=== PATIENT | male | born 1970 | race African-American/Black ===

== ENCOUNTER 2016-08-14 16:49 | Inpatient (IN) | payer OTHER ==
[~2016-08-14] VITALS: Ht 177.8 cm; Wt 159.8 kg
[~2016-08-14 16:49] MED LIST: ADVAIR HFA120 INHAL1 IH; ALEVE220 MG PO; ALPRAZOLAM0.5 MG PO; AMLODIPINE BESY10 MG PO; ATIVAN0.5 MG PO; ATIVAN2 MG PO; ATORVASTATIN CA20 MG PO; CARDIZEM60 MG PO; CIPRO500 MG PO; CLARITIN,ALAVAR10 MG PO; CLONAZEPAM0.5 MG PO; DICLOFENAC SODI75 MG PO; DILTIAZEM HCL60 MG PO; DOXEPIN HCL50 MG PO; DULERA 200 MCG/13 GM IH; DUONEB 2.5-0.5 M3 ML AEROSOL; ENOXAPARIN60 MG/0.6 SQ; Ecotrin PO; FLEXERIL10 MG PO; HYDROCHLOROTHIA25 MG PO; HYDROCODON-ACE1 EAC7 PO; HYDROMORPHO1 MG/1 ML PO; K-DUR20 MEQ PO; LEVAQUIN750 MG PO; LEVOFLOXACIN500 MG PO; LEVOFLOXACIN750 MG PO; LOPRESSOR50 MG PO; METOPROLOL SUCC50 MG PO; METOPROLOL TAR100 MG PO; METOPROLOL TART50 MG PO; MONTELUKAST SOD10 MG PO; NORVASC10 MG PO; ONDANSETRON HCL8 MG PO; PANTOPRAZOLE SO40 MG PO; PERCOCET 10/1 TABLET PO; PERCOCET 5/31 TABLET PO; PREDNISONE10 M1 PO; PREDNISONE10 MG PO; PREDNISONE20 MG PO; PRINZIDE 20-251 EACH PO; PROAIR HFA8.5 GM IH; PROMETHAZINE V240 ML PO; PROMETHAZINE12.5 M1 PO; ROBITUSSIN NIG118 ML PO; SERTRALINE HCL100 MG PO; SERTRALINE HCL50 MG PO; SINGULAIR10 MG PO; SPIRIVA RESPIMAT4 GM IH; TESSALON PERLE100 MG PO; THEOCHRON200 MG PO; TOPROL XL100 MG PO; ZESTORETIC,P1 TABLE2 PO; ZOLOFT100 MG PO; ZOLOFT50 MG PO; ZYRTEC10 M3 PO
[2016-08-14 17:52] LABS: HEMATOCRIT 38.5 % (38.0-50.0); MCH 27.8 PG (29.0-34.0); MCHC 33.8 G/DL (30.0-36.0); MCV 82.4 FL (86-99); MEAN PLAT.VOLUME 10.2 uM^3 (9.0-12.4); PLATELET COUNT 193 K/uL (156-360); RBC DIS.WIDTH-CV 15.7 % (11.8-14.6); RBC DIS.WIDTH-SD 46.3 % (39-53); RED BLOOD COUNT 4.67 M/uL (4.00-5.50); WHITE BLOOD COUNT 13.6 K/uL (4.1-10.2)
[2016-08-14 17:54] LABS: EOSINOPHIL (%) 0.7 % (0-5); EOSINOPHIL COUNT 0.1 K/uL (0-0.3); IMMATURE GRANULOCYTE (%) 0.5 % (0.0-0.7); IMMATURE GRANULOCYTE COUNT 0.7 K/uL; LYMPHOCYTE COUNT 3.1 K/uL (1.0-2.8); MONOCYTE (%) 4.3 % (3-12); MONOCYTE COUNT 0.6 K/uL (0-0.8); NEUTROPHIL (%) 71.8 % (45-76); NEUTROPHIL COUNT 9.8 K/uL (1.8-6.4)
[2016-08-14 18:00] LABS: CHLORIDE 104 mEq/L (99-109); POTASSIUM 2.8 mEq/L (3.7-5.4); SODIUM 141 mEq/L (136-147)
[2016-08-14 18:03] LABS: GLUCOSE 128 mg/dL (70-99)
[2016-08-14 18:04] LABS: ANION GAP 14 MEQ/L (2-14)
[2016-08-14 18:05] LABS: TOTAL BILIRUBIN 0.4 mg/dL (0.0-1.0)
[2016-08-14 18:06] LABS: ALKALINE PHOSPHATASE 93 IU/L (3-129); GFR ESTIMATE (CALCULATED) > 59 mL/min/
[2016-08-14 18:07] LABS: UREA NITROGEN (BUN) 19 mg/dL (9-23)
[2016-08-14 18:12] LABS: TROP-I INTERPRETATION NEGATIVE; TROPONIN-I < 0.01 ng/mL (0.0-0.30)
[2016-08-14] MEDS ORDERED: MELOXICAM15 MG PO (19:33)
[2016-08-14] MEDS ORDERED: DESYREL100 MG PO (19:35)
[2016-08-14] MEDS ORDERED: VENLAFAXINE HC150 M1 PO (19:36)
[2016-08-14 19:39] LABS: D-DIMER ELISA 0.26 mg/L FEU (< 0.57)
[2016-08-14] MEDS ORDERED: ATIVAN1 MG PO (19:42)
[2016-08-15 01:08] VITALS: BP 134/86
[2016-08-15 05:04] VITALS: BP 132/74
[2016-08-15 06:28] LABS: HEMATOCRIT 38.5 % (38.0-50.0); MCH 28.8 PG (29.0-34.0); MCHC 34.5 G/DL (30.0-36.0); MCV 83.3 FL (86-99); MEAN PLAT.VOLUME 10.6 uM^3 (9.0-12.4); PLATELET COUNT 212 K/uL (156-360); RBC DIS.WIDTH-CV 15.6 % (11.8-14.6); RBC DIS.WIDTH-SD 47.2 % (39-53); RED BLOOD COUNT 4.62 M/uL (4.00-5.50); WHITE BLOOD COUNT 16.2 K/uL (4.1-10.2)
[2016-08-15 06:52] LABS: ANION GAP 11 MEQ/L (2-14); CHLORIDE 102 MEQ/L (99-109); GFR ESTIMATE (CALCULATED) > 59 mL/min/; GLUCOSE 171 mg/dL (70-99); SAMPLE HEMOLYSIS CHECK 0; SAMPLE ICTERIC CHECK 0; SAMPLE LIPEMIA CHECK 0; SODIUM 140 MEQ/L (136-147); UREA NITROGEN (BUN) 17 mg/dL (9-23)
[2016-08-15 06:53] LABS: POTASSIUM 4.3 MEQ/L (3.7-5.4)
[2016-08-15 16:35] VITALS: BP 138/86
[2016-08-15 21:22] VITALS: BP 135/79
[2016-08-15 21:25] VITALS: BP 133/82
[2016-08-16] VITALS (7 sets, daily range): BP systolic 123–147; BP diastolic 74–96
[2016-08-17 08:25] VITALS: BP 148/100
[2016-08-17 15:05] VITALS: BP 133/81
[2016-08-18] VITALS: BP 135/79
[2016-08-18 08:00] VITALS: BP 159/95
[2016-08-18 16:01] VITALS: BP 135/98
[2016-08-19] VITALS: BP 134/88
[2016-08-19 02:08] LABS: TROP-I INTERPRETATION NEGATIVE; TROPONIN-I < 0.01 ng/mL (0.0-0.30)
[2016-08-19 07:33] LABS: TROP-I INTERPRETATION NEGATIVE; TROPONIN-I < 0.01 ng/mL (0.0-0.30)
[2016-08-19 07:55] VITALS: BP 144/79
[2016-08-19 08:30] LABS: HEMATOCRIT 40.1 % (38.0-50.0); MCH 27.6 PG (29.0-34.0); MCHC 32.7 G/DL (30.0-36.0); MCV 84.6 FL (86-99); MEAN PLAT.VOLUME 11.1 uM^3 (9.0-12.4); PLATELET COUNT 207 K/uL (156-360); RBC DIS.WIDTH-CV 16.7 % (11.8-14.6); RBC DIS.WIDTH-SD 50.8 % (39-53); RED BLOOD COUNT 4.74 M/uL (4.00-5.50); WHITE BLOOD COUNT 20.7 K/uL (4.1-10.2)
[2016-08-19 08:38] LABS: ANION GAP 8 MEQ/L (2-14); CHLORIDE 101 MEQ/L (99-109); SAMPLE HEMOLYSIS CHECK 0; SAMPLE ICTERIC CHECK 0; SAMPLE LIPEMIA CHECK 0; SODIUM 138 MEQ/L (136-147)
[2016-08-19 08:49] LABS: GFR ESTIMATE (CALCULATED) > 59 mL/min/; GLUCOSE 104 mg/dL (70-99); UREA NITROGEN (BUN) 20 mg/dL (9-23)
[2016-08-19 11:46] VITALS: BP 129/86
[2016-08-19 13:01] LABS: TROP-I INTERPRETATION NEGATIVE; TROPONIN-I < 0.01 ng/mL (0.0-0.30)
[2016-08-19 16:01] VITALS: BP 132/74
[2016-08-19 19:27] VITALS: BP 121/74
[2016-08-19 19:33] LABS: TROP-I INTERPRETATION NEGATIVE; TROPONIN-I < 0.01 ng/mL (0.0-0.30)
[2016-08-19 23:38] VITALS: BP 128/81
[2016-08-20 03:39] VITALS: BP 137/90
[2016-08-20 07:54] VITALS: BP 172/89
[2016-08-20 10:36] VITALS: BP 172/89
[2016-08-20] MEDS ORDERED: SPIRIVA RESPIMAT4 GM IH (12:31)
[2016-08-20] MEDS ORDERED: BENZONATATE100 MG PO (12:31)
[2016-08-20] MEDS ORDERED: BUSPAR10 MG PO (12:31)
[2016-08-20] MEDS ORDERED: ADVAIR HFA120 INHALA IH (12:32)
[2016-08-20] MEDS ORDERED: GUAIFENESIN WI120 M1 PO (12:32)
[2016-08-20] MEDS ORDERED: MUCINEX600 MG PO (12:32)
[2016-08-20] MEDS ORDERED: PREDNISONE10 MG PO (12:34)
[2016-08-20] MEDS ORDERED: ENDOCET 5-3251 EACH PO (12:36)
[2016-08-20] MEDS ORDERED: EFFEXOR XR75 MG PO (13:13)
== END 2016-08-20 13:55 | disposition home or self-care (01) | DRG 155 ==
LOC: EME 16:49 → EDOF 20:58 → 5WEST 20:58 → EDOF 20:58 → 5WEST 23:21 → 5SOUTH 08-16 10:26 → 5WEST 08-16 10:26 → 5SOUTH 08-16 21:53
PROVIDERS: Emergency Medicine; Hospitalist; Nurse Practitioner Adult Health
PROC: 5A09357 Assistance with Respiratory Ventilation, Less than 24 Consecutive Hours, Continuous Positive Airway Pressure (ICD-10-PCS; principal; 2016-08-15)
DX: J38.3 Other diseases of vocal cords (principal); J44.1 Chronic obstructive pulmonary disease with (acute) exacerbation; J44.0 Chronic obstructive pulmonary disease with (acute) lower respiratory infection; J20.9 Acute bronchitis, unspecified; Z68.43 Body mass index [BMI] 50.0-59.9, adult; E87.6 Hypokalemia; M62.08 Separation of muscle (nontraumatic), other site; J45.909 Unspecified asthma, uncomplicated; G47.33 Obstructive sleep apnea (adult) (pediatric); G40.909 Epilepsy, unspecified, not intractable, without status epilepticus; I10 Essential (primary) hypertension; E78.5 Hyperlipidemia, unspecified; F32.9 Major depressive disorder, single episode, unspecified; F41.9 Anxiety disorder, unspecified; E66.01 Morbid (severe) obesity due to excess calories; Z87.891 Personal history of nicotine dependence; Z91.041 Radiographic dye allergy status
CPT/HCPCS: 70360; 70490; 71010; 71020; 71250; 74150; 76536; 80048; 80053; 83880; 84484; 85025; 85027; 85379; 87651 90; 92610 GN; 93005; 94640; 94640 76; 94660; 94760; 99202; 99281; 99284; G0378; J0696; J1100; J1170; J1644; J2270; J2930; J7030; J7050; J7512

== ENCOUNTER 2016-10-09 19:00 | Emergency (ER) | payer OTHER ==
[~2016-10-09] VITALS: Ht 180.3 cm; Wt 167.1 kg
[~2016-10-09 19:00] MED LIST changes: +ADVAIR HFA120 INHALA IH; +ATIVAN1 MG PO; +BENZONATATE100 MG PO; +BUSPAR10 MG PO; +DESYREL100 MG PO; +EFFEXOR XR75 MG PO; +ENDOCET 5-3251 EACH PO; +GUAIFENESIN WI120 M1 PO; +MELOXICAM15 MG PO; +MUCINEX600 MG PO; +VENLAFAXINE HC150 M1 PO
[2016-10-09 19:48] LABS: HEMATOCRIT 39.3 % (38.0-50.0); MCH 28.4 PG (29.0-34.0); MCHC 31.8 G/DL (30.0-36.0); MCV 89.3 FL (86-99); PLATELET COUNT 206 K/uL (156-360); RBC DIS.WIDTH-SD 49.3 % (39-53); WHITE BLOOD COUNT 12.6 K/uL (4.1-10.2)
[2016-10-09 19:56] LABS: CHLORIDE 107 mEq/L (99-109); SODIUM 145 mEq/L (136-147)
[2016-10-09 19:58] LABS: GLUCOSE 86 mg/dL (70-99)
[2016-10-09 19:59] LABS: ANION GAP 10 MEQ/L (2-14)
[2016-10-09 20:00] LABS: ADD MIUA? NO; BILIRUBIN NEGATIVE; BLOOD NEGATIVE; COLOR STRAW ((YELLOW)); GLUCOSE (STRIP) NEGATIVE; KETONES NEGATIVE; LEUKOCYTES NEGATIVE; NITRITE NEGATIVE; PROTEIN (STRIP) NEGATIVE; SPECIFIC GRAVITY 1.005 (1.000-1.030); UCUL ADDED? NO; UROBILINOGEN 0.2 MG/DL (0.2-1.0)
[2016-10-09 20:02] LABS: GFR ESTIMATE (CALCULATED) > 59 mL/min/
[2016-10-09 20:03] LABS: UREA NITROGEN (BUN) 12 mg/dL (9-23)
[2016-10-09 21:30] LABS: TOTAL BILIRUBIN 0.6 mg/dL (0.0-1.0)
[2016-10-09 21:31] LABS: ALKALINE PHOSPHATASE 94 IU/L (3-129)
[2016-10-09 21:34] LABS: DIRECT BILIRUBIN 0.3 mg/dL (0.0-0.3)
[2016-10-09 21:35] LABS: LIPASE 99 U/L (1.0-51.0)
[2016-10-09] MEDS ORDERED: CIPRO500 MG PO (22:54)
[2016-10-09] MEDS ORDERED: FLAGYL500 MG PO (22:54)
[2016-10-09 23:25] VITALS: BP 142/85
== END 2016-10-09 23:26 | disposition home or self-care (01) ==
LOC: EME 19:00
DX: K57.92 Diverticulitis of intestine, part unspecified, without perforation or abscess without bleeding (principal); R79.89 Other specified abnormal findings of blood chemistry; D72.829 Elevated white blood cell count, unspecified; J45.909 Unspecified asthma, uncomplicated; G89.29 Other chronic pain; I10 Essential (primary) hypertension; R56.9 Unspecified convulsions; Z87.442 Personal history of urinary calculi; Z87.820 Personal history of traumatic brain injury; Z87.891 Personal history of nicotine dependence
CPT/HCPCS: 74176; 80048; 80076; 81003; 83690; 85027; 99281; 99285; J1885; J2405; J3010; J7030

== ENCOUNTER 2016-10-14 12:53 | Emergency (ER) | payer OTHER ==
[~2016-10-14] VITALS: Ht 180.3 cm; Wt 164.1 kg
[~2016-10-14 12:53] MED LIST changes: +FLAGYL500 MG PO
[2016-10-14 13:19] LABS: BASOPHIL COUNT 0.1 K/uL (0-0.1); EOSINOPHIL (%) 3.7 % (0-5); EOSINOPHIL COUNT 0.4 K/uL (0-0.3); HEMATOCRIT 44.5 % (38.0-50.0); IMMATURE GRANULOCYTE (%) 0.2 % (0.0-0.7); INSTRUMENT ABS NEUTROPHIL CT 7.2 K/uL; LYMPHOCYTE COUNT 2.7 K/uL (1.0-2.8); MCH 28.3 PG (29.0-34.0); MCHC 32.4 G/DL (30.0-36.0); MCV 87.6 FL (86-99); MEAN PLAT.VOLUME 10.1 uM^3 (9.0-12.4); MONOCYTE (%) 11.3 % (3-12); MONOCYTE COUNT 1.3 K/uL (0-0.8); NEUTROPHIL (%) 61.4 % (45-76); NEUTROPHIL COUNT 7.2 K/uL (1.8-6.4); PLATELET COUNT 253 K/uL (156-360); RBC DIS.WIDTH-CV 14.2 % (11.8-14.6); RBC DIS.WIDTH-SD 46.3 % (39-53); RED BLOOD COUNT 5.08 M/uL (4.00-5.50); WHITE BLOOD COUNT 11.8 K/uL (4.1-10.2)
[2016-10-14 13:28] LABS: CHLORIDE 103 mEq/L (99-109); POTASSIUM 3.7 mEq/L (3.7-5.4); SODIUM 141 mEq/L (136-147)
[2016-10-14 13:30] LABS: GLUCOSE 118 mg/dL (70-99)
[2016-10-14 13:31] LABS: ANION GAP 13 MEQ/L (2-14)
[2016-10-14 13:31] LABS: ADD MIUA? YES; BILIRUBIN NEGATIVE; BLOOD SMALL; COLOR AMBER ((YELLOW)); GLUCOSE (STRIP) NEGATIVE; KETONES NEGATIVE; LEUKOCYTES SMALL; NITRITE NEGATIVE; PROTEIN (STRIP) 30; SPECIFIC GRAVITY 1.028 (1.000-1.030)
[2016-10-14 13:32] LABS: TOTAL BILIRUBIN 0.5 mg/dL (0.0-1.0)
[2016-10-14 13:33] LABS: ALKALINE PHOSPHATASE 99 IU/L (3-129)
[2016-10-14 13:34] LABS: GFR ESTIMATE (CALCULATED) > 59 mL/min/
[2016-10-14 13:35] LABS: UREA NITROGEN (BUN) 16 mg/dL (9-23)
[2016-10-14 13:37] LABS: LIPASE 11 U/L (1.0-51.0)
[2016-10-14 13:40] LABS: BACTERIA NONE SEEN /HPF; EPITHELIAL CELLS RARE /HPF; MUCUS 3+ /LPF; RED BLOOD CELLS 15-20 /HPF (0-5); UCUL ADDED? NO; WHITE BLOOD CELLS 0-5 /HPF (0-5)
[2016-10-14] MEDS ORDERED: PROMETHAZINE HC25 M1 PO (17:34)
[2016-10-14] MEDS ORDERED: BENTYL20 MG PO (17:34)
[2016-10-14] MEDS ORDERED: PHENERGAN25 MG PR (17:34)
[2016-10-14 17:52] VITALS: BP 100/98
== END 2016-10-14 18:08 | disposition home or self-care (01) ==
LOC: EME 12:53
PROVIDERS: Physician Assistant
DX: R10.9 Unspecified abdominal pain (principal); K57.30 Diverticulosis of large intestine without perforation or abscess without bleeding; R30.0 Dysuria; R31.29 Other microscopic hematuria; Z87.442 Personal history of urinary calculi; I10 Essential (primary) hypertension; J44.9 Chronic obstructive pulmonary disease, unspecified; J45.909 Unspecified asthma, uncomplicated; Z87.891 Personal history of nicotine dependence
CPT/HCPCS: 74176; 80053; 81003; 83605; 83690; 85025; 85027; 87040; 87086; 99281; 99284; J1885; J2405; J3010; J7030

== ENCOUNTER 2016-11-07 09:28 | Emergency (ER) | payer OTHER ==
[~2016-11-07] VITALS: Ht 180.3 cm; Wt 166.0 kg
[~2016-11-07 09:28] MED LIST changes: +BENTYL20 MG PO; +PHENERGAN25 MG PR; +PROMETHAZINE HC25 M1 PO
[2016-11-07 10:32] LABS: BASOPHIL COUNT 0.1 K/uL (0-0.1); EOSINOPHIL (%) 3.8 % (0-5); EOSINOPHIL COUNT 0.3 K/uL (0-0.3); HEMATOCRIT 38.5 % (38.0-50.0); IMMATURE GRANULOCYTE (%) 0.3 % (0.0-0.7); INSTRUMENT ABS NEUTROPHIL CT 5.7 K/uL; MCH 28.3 PG (29.0-34.0); MCHC 32.5 G/DL (30.0-36.0); MCV 87.3 FL (86-99); MEAN PLAT.VOLUME 10.5 uM^3 (9.0-12.4); MONOCYTE (%) 8.5 % (3-12); MONOCYTE COUNT 0.8 K/uL (0-0.8); NEUTROPHIL COUNT 5.7 K/uL (1.8-6.4); PLATELET COUNT 181 K/uL (156-360); RBC DIS.WIDTH-CV 13.4 % (11.8-14.6); RBC DIS.WIDTH-SD 43.3 % (39-53); RED BLOOD COUNT 4.41 M/uL (4.00-5.50)
[2016-11-07 10:40] LABS: CHLORIDE 107 mEq/L (99-109); POTASSIUM 3.4 mEq/L (3.7-5.4); SODIUM 143 mEq/L (136-147)
[2016-11-07 10:42] LABS: GLUCOSE 100 mg/dL (70-99)
[2016-11-07 10:43] LABS: ANION GAP 12 MEQ/L (2-14)
[2016-11-07 10:44] LABS: D-DIMER ELISA 0.35 mg/L FEU (< 0.57); PROTHROMBIN TIME 9.8 (9.2-11.2); PTT 27.2 (25-32)
[2016-11-07 10:46] LABS: GFR ESTIMATE (CALCULATED) > 59 mL/min/; UREA NITROGEN (BUN) 15 mg/dL (9-23)
[2016-11-07 10:52] LABS: TROP-I INTERPRETATION NEGATIVE; TROPONIN-I < 0.01 ng/mL (0.0-0.30)
[2016-11-07 12:24] LABS: TROP-I INTERPRETATION NEGATIVE; TROPONIN-I < 0.01 ng/mL (0.0-0.30)
[2016-11-07] MEDS ORDERED: ATARAX,VISTARIL50 MG PO (13:04)
[2016-11-07 14:00] VITALS: BP 118/81
== END 2016-11-07 14:06 | disposition home or self-care (01) ==
LOC: EME 09:28
PROVIDERS: Emergency Medicine
DX: R06.00 Dyspnea, unspecified (principal); I10 Essential (primary) hypertension; Z87.891 Personal history of nicotine dependence; Z91.041 Radiographic dye allergy status
CPT/HCPCS: 71010; 80048; 84484; 85025; 85379; 85610; 85730; 93005; 94640; 99202; 99281; 99285

== ENCOUNTER 2016-12-18 16:03 | Emergency (ER) | payer OTHER ==
[~2016-12-18] VITALS: Ht 180.3 cm; Wt 159.5 kg
[~2016-12-18 16:03] MED LIST changes: +ATARAX,VISTARIL50 MG PO
[2016-12-18 16:52] LABS: HEMATOCRIT 42.9 % (38.0-50.0); MCH 27.7 PG (29.0-34.0); MCHC 31.9 G/DL (30.0-36.0); MCV 86.8 FL (86-99); MEAN PLAT.VOLUME 10.1 uM^3 (9.0-12.4); PLATELET COUNT 197 K/uL (156-360); RBC DIS.WIDTH-CV 13.7 % (11.8-14.6); RED BLOOD COUNT 4.94 M/uL (4.00-5.50); WHITE BLOOD COUNT 11.7 K/uL (4.1-10.2)
[2016-12-18 16:59] LABS: CHLORIDE 106 mEq/L (99-109); POTASSIUM 4.2 mEq/L (3.7-5.4)
[2016-12-18 17:00] LABS: SODIUM 141 mEq/L (136-147)
[2016-12-18 17:01] LABS: GLUCOSE 105 mg/dL (70-99)
[2016-12-18 17:03] LABS: ANION GAP 10 MEQ/L (2-14)
[2016-12-18 17:05] LABS: GFR ESTIMATE (CALCULATED) > 59 mL/min/
[2016-12-18 17:06] LABS: UREA NITROGEN (BUN) 17 mg/dL (9-23)
[2016-12-18 17:13] LABS: TROP-I INTERPRETATION NEGATIVE; TROPONIN-I < 0.01 ng/mL (0.0-0.30)
[2016-12-18] MEDS ORDERED: PHENERGAN-CODE120 ML PO (17:42)
[2016-12-18] MEDS ORDERED: PROVENTIL HFA6.7 GM IH (17:42)
[2016-12-18] MEDS ORDERED: LEVAQUIN750 MG PO (17:42)
[2016-12-18 18:12] VITALS: BP 119/78
== END 2016-12-18 18:13 | disposition home or self-care (01) ==
LOC: EME 16:03
PROVIDERS: Emergency Medicine
DX: J20.9 Acute bronchitis, unspecified (principal); I10 Essential (primary) hypertension; R56.9 Unspecified convulsions; Z87.442 Personal history of urinary calculi; Z91.041 Radiographic dye allergy status; Z87.891 Personal history of nicotine dependence
CPT/HCPCS: 71020; 80048; 84484; 85027; 93005; 94640; 99281; 99285

== ENCOUNTER 2017-01-01 04:01 | Emergency (ER) | payer OTHER ==
[~2017-01-01] VITALS: Ht 180.3 cm; Wt 163.2 kg
[~2017-01-01 04:01] MED LIST changes: +PHENERGAN-CODE120 ML PO; +PROVENTIL HFA6.7 GM IH
[2017-01-01 05:06] LABS: HEMATOCRIT 38.6 % (38.0-50.0); MCH 27.8 PG (29.0-34.0); MCHC 32.4 G/DL (30.0-36.0); MCV 85.8 FL (86-99); MEAN PLAT.VOLUME 10.3 uM^3 (9.0-12.4); PLATELET COUNT 192 K/uL (156-360); RBC DIS.WIDTH-CV 13.7 % (11.8-14.6); RBC DIS.WIDTH-SD 42.9 % (39-53); WHITE BLOOD COUNT 8.5 K/uL (4.1-10.2)
[2017-01-01 05:35] LABS: CHLORIDE 105 mEq/L (99-109); POTASSIUM 3.7 mEq/L (3.7-5.4); SODIUM 138 mEq/L (136-147)
[2017-01-01 05:37] LABS: GLUCOSE 98 mg/dL (70-99)
[2017-01-01 05:38] LABS: ANION GAP 8 MEQ/L (2-14)
[2017-01-01 05:41] LABS: GFR ESTIMATE (CALCULATED) > 59 mL/min/
[2017-01-01 05:42] LABS: UREA NITROGEN (BUN) 17 mg/dL (9-23)
[2017-01-01 05:43] LABS: CREATINE KINASE 108 IU/L (1-294); TOTAL CK 108 IU/L (1-294)
[2017-01-01 05:50] LABS: CK-MB 0.9 ng/mL (0.0-4.9)
[2017-01-01 06:15] LABS: BACTERIA NONE SEEN /HPF; EPITHELIAL CELLS RARE /HPF; MUCUS TRACE /LPF; RED BLOOD CELLS 0-5 /HPF (0-5); UCUL ADDED? NO; WHITE BLOOD CELLS 0-5 /HPF (0-5)
[2017-01-01 06:28] LABS: INFLUENZA A VIRAL ANTIGEN NEGATIVE; INFLUENZA B VIRAL ANTIGEN NEGATIVE
[2017-01-01 06:30] VITALS: BP 137/81
[2017-01-01 06:30] LABS: AMPHETAMINE NEGATIVE (500 ng/mL); BARBITURATES NEGATIVE (200 ng/mL); BENZODIAZEPINES NEGATIVE (150 ng/mL); COCAINE NEGATIVE (150 ng/mL); METHADONE NEGATIVE (200 ng/mL); METHAMPHETAMINE NEGATIVE (500 ng/mL); OPIATES (MORPHINE) PRESUMPTIVE POSITIVE (100 ng/mL); OXYCODONE PRESUMPTIVE POSITIVE (100 ng/mL); PHENCYCLIDINE NEGATIVE (25 ng/mL); THC CANNABINOIDS NEGATIVE (50 ng/mL); TRICYCLIC ANTIDEPRESSANTS NEGATIVE (300 ng/mL)
[2017-01-01 06:31] LABS: ADD MEDTOX COMMENT Y; INTERNAL CONTROLS VALID? YES; PROPOXYPHENE NEGATIVE (300 ng/mL)
[2017-01-01 06:45] LABS: COLOR YELLOW ((YELLOW)); LEUKOCYTES NEGATIVE; NITRITE NEGATIVE; SPECIFIC GRAVITY 1.018 (1.000-1.030)
[2017-01-01 06:46] LABS: ADD MIUA? YES; BILIRUBIN NEGATIVE; BLOOD MODERATE; GLUCOSE (STRIP) NEGATIVE; KETONES NEGATIVE; PROTEIN (STRIP) NEGATIVE; UROBILINOGEN 0.2 MG/DL (0.2-1.0)
== END 2017-01-01 06:45 | disposition home or self-care (01) ==
LOC: EME 04:01
PROVIDERS: Emergency Medicine
DX: R20.2 Paresthesia of skin (principal); M25.522 Pain in left elbow; M25.521 Pain in right elbow; M25.562 Pain in left knee; M25.561 Pain in right knee; M79.672 Pain in left foot; M79.671 Pain in right foot; G89.29 Other chronic pain; J44.9 Chronic obstructive pulmonary disease, unspecified; I10 Essential (primary) hypertension; Z87.442 Personal history of urinary calculi; Z90.49 Acquired absence of other specified parts of digestive tract; Z87.891 Personal history of nicotine dependence
CPT/HCPCS: 80048; 81003; 82550; 82553; 83605; 84999; 85027; 87502; 99281; 99285; J1885; J2270; J2405; J7030

== ENCOUNTER 2017-01-15 13:43 | Emergency (ER) | payer OTHER ==
[~2017-01-15] VITALS: Ht 180.3 cm; Wt 159.1 kg
[2017-01-15 16:15] LABS: MCH 27.5 PG (29.0-34.0); MCHC 32.4 G/DL (30.0-36.0); MEAN PLAT.VOLUME 10.3 uM^3 (9.0-12.4); PLATELET COUNT 217 K/uL (156-360); RBC DIS.WIDTH-SD 43.5 % (39-53); RED BLOOD COUNT 4.94 M/uL (4.00-5.50); WHITE BLOOD COUNT 10.9 K/uL (4.1-10.2)
[2017-01-15 16:27] LABS: ADD MIUA? YES; BILIRUBIN NEGATIVE; BLOOD SMALL; COLOR COLORLESS ((YELLOW)); GLUCOSE (STRIP) NEGATIVE; KETONES NEGATIVE; LEUKOCYTES NEGATIVE; NITRITE NEGATIVE; PROTEIN (STRIP) NEGATIVE; SPECIFIC GRAVITY 1.006 (1.000-1.030); UROBILINOGEN 0.2 MG/DL (0.2-1.0)
[2017-01-15 16:30] LABS: BACTERIA NONE SEEN /HPF; EPITHELIAL CELLS RARE /HPF; MUCUS TRACE /LPF; RED BLOOD CELLS 0-5 /HPF (0-5); UCUL ADDED? NO; WHITE BLOOD CELLS 0-5 /HPF (0-5)
[2017-01-15 16:34] LABS: AMPHETAMINE NEGATIVE (500 ng/mL); BARBITURATES NEGATIVE (200 ng/mL); BENZODIAZEPINES PRESUMPTIVE POSITIVE (150 ng/mL); COCAINE NEGATIVE (150 ng/mL); INTERNAL CONTROLS VALID? YES; METHADONE NEGATIVE (200 ng/mL); METHAMPHETAMINE NEGATIVE (500 ng/mL); OPIATES (MORPHINE) NEGATIVE (100 ng/mL); OXYCODONE NEGATIVE (100 ng/mL); PHENCYCLIDINE NEGATIVE (25 ng/mL); PROPOXYPHENE NEGATIVE (300 ng/mL); THC CANNABINOIDS NEGATIVE (50 ng/mL); TRICYCLIC ANTIDEPRESSANTS NEGATIVE (300 ng/mL)
[2017-01-15 16:35] LABS: ADD MEDTOX COMMENT Y
[2017-01-15 16:40] LABS: CHLORIDE 109 mEq/L (99-109); POTASSIUM 3.5 mEq/L (3.7-5.4); SODIUM 144 mEq/L (136-147)
[2017-01-15 16:42] LABS: GLUCOSE 95 mg/dL (70-99)
[2017-01-15 16:43] LABS: ANION GAP 9 MEQ/L (2-14)
[2017-01-15 16:44] LABS: TOTAL BILIRUBIN 0.4 mg/dL (0.0-1.0)
[2017-01-15 16:45] LABS: SERUM ETHYL ALCOHOL < 10 mg/dL
[2017-01-15 16:46] LABS: ALKALINE PHOSPHATASE 119 IU/L (3-129); GFR ESTIMATE (CALCULATED) > 59 mL/min/
[2017-01-15 16:47] LABS: UREA NITROGEN (BUN) 14 mg/dL (9-23)
[2017-01-15 17:10] LABS: BENZODIAZEPINES QUANT VALUE 0 NG/ML; BENZODIAZEPINES, URINE SCREEN Negative (200 ng/mL)
[2017-01-15 22:49] VITALS: BP 157/85
== END 2017-01-15 23:08 ==
LOC: EME 13:43
PROVIDERS: Emergency Medicine
DX: F33.2 Major depressive disorder, recurrent severe without psychotic features (principal); R45.851 Suicidal ideations; I50.9 Heart failure, unspecified; J44.9 Chronic obstructive pulmonary disease, unspecified; I10 Essential (primary) hypertension; Z87.442 Personal history of urinary calculi; Z91.041 Radiographic dye allergy status; Z87.891 Personal history of nicotine dependence
CPT/HCPCS: 80053; 81003; 84999; 85027; 90837; 99281; 99285; G0480

== ENCOUNTER 2017-03-09 11:02 | Observation (INO) | payer OTHER ==
[~2017-03-09] VITALS: Ht 180.3 cm; Wt 160.0 kg
[2017-03-09 13:05] LABS: EOSINOPHIL (%) 6.3 % (0-5); EOSINOPHIL COUNT 0.6 K/uL (0-0.3); HEMATOCRIT 38.8 % (38.0-50.0); IMMATURE GRANULOCYTE (%) 0.2 % (0.0-0.7); LYMPHOCYTE COUNT 2.3 K/uL (1.0-2.8); MCH 27.4 PG (29.0-34.0); MCHC 32.2 G/DL (30.0-36.0); MCV 85.1 FL (86-99); MEAN PLAT.VOLUME 10.3 uM^3 (9.0-12.4); MONOCYTE (%) 9.6 % (3-12); MONOCYTE COUNT 0.8 K/uL (0-0.8); NEUTROPHIL (%) 57.7 % (45-76); PLATELET COUNT 230 K/uL (156-360); RBC DIS.WIDTH-CV 14.7 % (11.8-14.6); RBC DIS.WIDTH-SD 46.2 % (39-53); RED BLOOD COUNT 4.56 M/uL (4.00-5.50); WHITE BLOOD COUNT 8.7 K/uL (4.1-10.2)
[2017-03-09 13:15] LABS: CHLORIDE 107 mEq/L (99-109); POTASSIUM 3.9 mEq/L (3.7-5.4); SODIUM 141 mEq/L (136-147)
[2017-03-09 13:16] LABS: GLUCOSE 95 mg/dL (70-99)
[2017-03-09 13:18] LABS: ANION GAP 9 MEQ/L (2-14)
[2017-03-09 13:20] LABS: GFR ESTIMATE (CALCULATED) > 59 mL/min/
[2017-03-09 13:21] LABS: UREA NITROGEN (BUN) 17 mg/dL (9-23)
[2017-03-09] MEDS ORDERED: VENTOLIN HFA18 GM IH (17:04)
[2017-03-09] MEDS ORDERED: PERCOCET 7.51 TABLET PO (17:05)
[2017-03-09] MEDS ORDERED: RESTORIL15 MG PO (17:06)
[2017-03-09] MEDS ORDERED: LISINOPRIL2.5 MG PO (17:07)
[2017-03-09] MEDS ORDERED: FLONASE16 G1 BOTH NARES (17:07)
[2017-03-09] MEDS ORDERED: CYMBALTA30 MG PO (17:07)
[2017-03-09] MEDS ORDERED: SEROQUEL50 MG PO (17:07)
[2017-03-09] MEDS ORDERED: CYMBALTA60 MG PO (17:07)
[2017-03-09] MEDS ORDERED: GABAPENTIN100 MG PO (17:07)
[2017-03-09] MEDS ORDERED: FUROSEMIDE20 MG PO (17:07)
[2017-03-09] MEDS ORDERED: GABAPENTIN600 MG PO (17:07)
[2017-03-09 17:45] VITALS: BP 119/60
[2017-03-09 20:38] VITALS: BP 152/87
[2017-03-10 00:04] VITALS: BP 142/91
[2017-03-10 04:34] VITALS: BP 143/69
[2017-03-10 07:46] VITALS: BP 138/103
[2017-03-10 11:53] VITALS: BP 139/83
[2017-03-10 12:37] LABS: ADD MIUA? YES; BILIRUBIN NEGATIVE; BLOOD MODERATE; COLOR YELLOW ((YELLOW)); GLUCOSE (STRIP) 50; KETONES 5; LEUKOCYTES NEGATIVE; NITRITE NEGATIVE; PROTEIN (STRIP) NEGATIVE; SPECIFIC GRAVITY 1.027 (1.000-1.030); UROBILINOGEN 0.2 MG/DL (0.2-1.0)
[2017-03-10 13:21] LABS: BACTERIA NONE SEEN /HPF; EPITHELIAL CELLS RARE /HPF; MUCUS 3+ /LPF; RED BLOOD CELLS TNTC /HPF (0-5); UCUL ADDED? YES; WHITE BLOOD CELLS 0-5 /HPF (0-5)
[2017-03-10 15:14] VITALS: BP 135/87
[2017-03-10 20:30] VITALS: BP 130/56
[2017-03-11 01:06] VITALS: BP 142/80
[2017-03-11 03:00] VITALS: BP 127/67
[2017-03-11 08:42] VITALS: BP 157/70
[2017-03-11] MEDS ORDERED: BENZONATATE100 MG PO (13:55)
[2017-03-11] MEDS ORDERED: PHENAZOPYRIDIN100 MG PO (13:55)
[2017-03-11] MEDS ORDERED: TAMSULOSIN HCL0.4 MG PO (13:55)
[2017-03-11] MEDS ORDERED: PREDNISONE10 MG PO (13:55)
[2017-03-11] MEDS ORDERED: AZITHROMYCIN500 M1 PO (13:55)
== END 2017-03-11 15:21 | disposition home or self-care (01) ==
LOC: EME 11:02 → EDOF 16:02 → ENRESERV 16:08 → 5WEST 17:11
PROVIDERS: Hospitalist; Physician Assistant
DX: R06.1 Stridor (principal); J20.9 Acute bronchitis, unspecified; I10 Essential (primary) hypertension; R31.29 Other microscopic hematuria; E66.01 Morbid (severe) obesity due to excess calories; Z68.42 Body mass index [BMI] 45.0-49.9, adult; G47.33 Obstructive sleep apnea (adult) (pediatric); R39.14 Feeling of incomplete bladder emptying; Z87.891 Personal history of nicotine dependence; Z83.3 Family history of diabetes mellitus; Z82.49 Family history of ischemic heart disease and other diseases of the circulatory system; Z81.1 Family history of alcohol abuse and dependence
CPT/HCPCS: 70360; 71020; 74176; 80048; 81003; 83880; 85025; 87086; 94640; 94640 76; 94660; 99202; 99281; 99285; G0378; J1100; J1650; J1940; J2930; J3475

== ENCOUNTER 2017-04-11 17:19 | Emergency (ER) | payer OTHER ==
[~2017-04-11] VITALS: Ht 180.3 cm; Wt 161.4 kg
[~2017-04-11 17:19] MED LIST changes: +AZITHROMYCIN500 M1 PO; +CYMBALTA30 MG PO; +CYMBALTA60 MG PO; +FLONASE16 G1 BOTH NARES; +FUROSEMIDE20 MG PO; +GABAPENTIN100 MG PO; +GABAPENTIN600 MG PO; +LISINOPRIL2.5 MG PO; +PERCOCET 7.51 TABLET PO; +PHENAZOPYRIDIN100 MG PO; +RESTORIL15 MG PO; +SEROQUEL50 MG PO; +TAMSULOSIN HCL0.4 MG PO; +VENTOLIN HFA18 GM IH
[2017-04-11] MEDS ORDERED: PREDNISONE10 MG PO (18:07)
[2017-04-11 18:57] VITALS: BP 151/93
== END 2017-04-11 18:59 | disposition home or self-care (01) ==
LOC: EME 17:19
DX: M54.12 Radiculopathy, cervical region (principal); J44.9 Chronic obstructive pulmonary disease, unspecified; I10 Essential (primary) hypertension; R56.9 Unspecified convulsions; Z87.442 Personal history of urinary calculi; Z87.891 Personal history of nicotine dependence; Z91.041 Radiographic dye allergy status
CPT/HCPCS: 99281; 99284

== ENCOUNTER 2017-06-25 13:45 | Emergency (ER) | payer OTHER ==
[~2017-06-25] VITALS: Ht 180.3 cm; Wt 160.8 kg
[2017-06-25 15:04] LABS: HEMATOCRIT 39.1 % (38.0-50.0); MCH 27.9 PG (29.0-34.0); MCHC 32.5 G/DL (30.0-36.0); MCV 85.7 FL (86-99); MEAN PLAT.VOLUME 10.5 uM^3 (9.0-12.4); PLATELET COUNT 219 K/uL (156-360); RBC DIS.WIDTH-CV 13.5 % (11.8-14.6); RBC DIS.WIDTH-SD 42.8 % (39-53); RED BLOOD COUNT 4.56 M/uL (4.00-5.50); WHITE BLOOD COUNT 8.9 K/uL (4.1-10.2)
[2017-06-25 15:13] LABS: CHLORIDE 108 mEq/L (99-109); POTASSIUM 3.9 mEq/L (3.7-5.4); SODIUM 141 mEq/L (136-147)
[2017-06-25 15:15] LABS: GLUCOSE 135 mg/dL (70-99)
[2017-06-25 15:16] LABS: ANION GAP 10 MEQ/L (2-14)
[2017-06-25 15:18] LABS: GFR ESTIMATE (CALCULATED) > 59 mL/min/
[2017-06-25 15:19] LABS: UREA NITROGEN (BUN) 12 mg/dL (9-23)
[2017-06-25 16:07] LABS: ADD MIUA? YES; BILIRUBIN NEGATIVE; BLOOD MODERATE; COLOR AMBER ((YELLOW)); GLUCOSE (STRIP) NEGATIVE; KETONES 5; LEUKOCYTES NEGATIVE; NITRITE NEGATIVE; PROTEIN (STRIP) 30; SPECIFIC GRAVITY 1.032 (1.000-1.030)
[2017-06-25 16:14] LABS: BACTERIA NONE SEEN /HPF; EPITHELIAL CELLS RARE /HPF; MUCUS 1+ /LPF; RED BLOOD CELLS 30-40 /HPF (0-5); UCUL ADDED? NO; WHITE BLOOD CELLS 0-5 /HPF (0-5)
[2017-06-25] MEDS ORDERED: ZOFRAN ODT4 MG PO (18:41)
[2017-06-25] MEDS ORDERED: FLOMAX0.4 MG PO (18:41)
[2017-06-25 19:25] VITALS: BP 144/90
== END 2017-06-25 19:25 | disposition home or self-care (01) ==
LOC: EME 13:45
DX: R10.31 Right lower quadrant pain (principal); J44.9 Chronic obstructive pulmonary disease, unspecified; I11.0 Hypertensive heart disease with heart failure; I50.9 Heart failure, unspecified; F41.9 Anxiety disorder, unspecified; Z91.041 Radiographic dye allergy status; R56.9 Unspecified convulsions; Z87.442 Personal history of urinary calculi; Z87.891 Personal history of nicotine dependence
CPT/HCPCS: 74176; 80048; 81003; 85027; 99281; 99283; J1885; Q0169

== ENCOUNTER 2017-06-26 02:43 | Emergency (ER) | payer OTHER ==
[~2017-06-26] VITALS: Ht 180.3 cm; Wt 160.5 kg
[~2017-06-26 02:43] MED LIST changes: +FLOMAX0.4 MG PO; +ZOFRAN ODT4 MG PO
[2017-06-26 03:51] LABS: EOSINOPHIL (%) 6.5 % (0-5); EOSINOPHIL COUNT 0.6 K/uL (0-0.3); IMMATURE GRANULOCYTE (%) 0.2 % (0.0-0.7); INSTRUMENT ABS NEUTROPHIL CT 4.8 K/uL; LYMPHOCYTE COUNT 2.5 K/uL (1.0-2.8); MCH 27.7 PG (29.0-34.0); MCHC 32.1 G/DL (30.0-36.0); MCV 86.3 FL (86-99); MEAN PLAT.VOLUME 10.4 uM^3 (9.0-12.4); MONOCYTE (%) 10.5 % (3-12); MONOCYTE COUNT 0.9 K/uL (0-0.8); NEUTROPHIL (%) 53.7 % (45-76); NEUTROPHIL COUNT 4.8 K/uL (1.8-6.4); PLATELET COUNT 205 K/uL (156-360); RBC DIS.WIDTH-CV 13.6 % (11.8-14.6); RBC DIS.WIDTH-SD 43.2 % (39-53); RED BLOOD COUNT 4.52 M/uL (4.00-5.50); WHITE BLOOD COUNT 8.9 K/uL (4.1-10.2)
[2017-06-26 04:01] LABS: CHLORIDE 109 mEq/L (99-109); POTASSIUM 3.9 mEq/L (3.7-5.4); SODIUM 143 mEq/L (136-147)
[2017-06-26 04:03] LABS: GLUCOSE 114 mg/dL (70-99)
[2017-06-26 04:05] LABS: ANION GAP 10 MEQ/L (2-14)
[2017-06-26 04:07] LABS: GFR ESTIMATE (CALCULATED) > 59 mL/min/
[2017-06-26 04:08] LABS: UREA NITROGEN (BUN) 15 mg/dL (9-23)
[2017-06-26 06:59] LABS: INTERNAL CONTROL VALID? YES; MONOSPOT (MONONUCLEOSIS SEROL) NEGATIVE
[2017-06-26 07:29] VITALS: BP 123/90
== END 2017-06-26 07:31 | disposition home or self-care (01) ==
LOC: EME 02:43
PROVIDERS: Emergency Medicine
DX: R10.9 Unspecified abdominal pain (principal); R31.9 Hematuria, unspecified; R11.2 Nausea with vomiting, unspecified; R30.0 Dysuria; Z87.442 Personal history of urinary calculi; I10 Essential (primary) hypertension; J44.9 Chronic obstructive pulmonary disease, unspecified; Z87.891 Personal history of nicotine dependence
CPT/HCPCS: 80048; 85025; 86308; 99281; 99285; J1885; J2405; J2550; J3010; J7030

== ENCOUNTER 2017-09-08 16:55 | Emergency (ER) | payer OTHER ==
[~2017-09-08] VITALS: Ht 180.3 cm; Wt 164.5 kg
[2017-09-08 17:44] LABS: HEMATOCRIT 35.2 % (38.0-50.0); HEMOGLOBIN 11.4 G/DL (12.5-16.6); MCH 27.4 PG (29.0-34.0); MCHC 32.4 G/DL (30.0-36.0); MCV 84.6 FL (86-99); PLATELET COUNT 223 K/uL (156-360); RBC DIS.WIDTH-CV 14.8 % (11.8-14.6); RBC DIS.WIDTH-SD 45.8 % (39-53); RED BLOOD COUNT 4.16 M/uL (4.00-5.50); WHITE BLOOD COUNT 9.9 K/uL (4.1-10.2)
[2017-09-08 18:07] LABS: CHLORIDE 107 MEQ/L (99-109); POTASSIUM 3.8 MEQ/L (3.7-5.4); SODIUM 142 MEQ/L (136-147)
[2017-09-08 18:09] LABS: TROP-I INTERPRETATION NEGATIVE; TROPONIN-I < 0.01 ng/mL (0.0-0.30)
[2017-09-08 18:12] LABS: GFR ESTIMATE (CALCULATED) > 59 mL/min/ (58.99-99999); GLUCOSE 104 mg/dL (70-99); UREA NITROGEN (BUN) 16 mg/dL (9-23)
[2017-09-08] MEDS ORDERED: PREDNISONE20 MG PO (20:21)
[2017-09-08 20:52] VITALS: BP 140/99
== END 2017-09-08 20:52 | disposition home or self-care (01) ==
LOC: EME 16:55
DX: J44.1 Chronic obstructive pulmonary disease with (acute) exacerbation (principal); J44.0 Chronic obstructive pulmonary disease with (acute) lower respiratory infection; J20.9 Acute bronchitis, unspecified; I11.0 Hypertensive heart disease with heart failure; I50.9 Heart failure, unspecified; F41.9 Anxiety disorder, unspecified; Z87.442 Personal history of urinary calculi; Z90.49 Acquired absence of other specified parts of digestive tract; Z96.652 Presence of left artificial knee joint; Z87.891 Personal history of nicotine dependence; Z91.041 Radiographic dye allergy status
CPT/HCPCS: 71046; 80048; 84484; 85027; 93005; 94640; 99281; 99285; J1100; J2930

== ENCOUNTER 2017-10-22 07:49 | Emergency (ER) | payer OTHER ==
[~2017-10-22] VITALS: Ht 180.3 cm; Wt 162.7 kg
[2017-10-22] MEDS ORDERED: PERCOCET 5/31 TABLET PO (09:36)
[2017-10-22 10:12] VITALS: BP 157/98
== END 2017-10-22 10:26 | disposition home or self-care (01) ==
LOC: EME 07:49
DX: S09.90XA Unspecified injury of head, initial encounter (principal); S80.02XA Contusion of left knee, initial encounter; W01.0XXA Fall on same level from slipping, tripping and stumbling without subsequent striking against object, initial encounter; I11.0 Hypertensive heart disease with heart failure; I50.9 Heart failure, unspecified; J44.9 Chronic obstructive pulmonary disease, unspecified; F41.9 Anxiety disorder, unspecified; Z79.51 Long term (current) use of inhaled steroids; Z87.891 Personal history of nicotine dependence; Z98.890 Other specified postprocedural states; Z90.49 Acquired absence of other specified parts of digestive tract; Z96.652 Presence of left artificial knee joint; Z87.19 Personal history of other diseases of the digestive system; Z87.442 Personal history of urinary calculi; Z91.041 Radiographic dye allergy status
CPT/HCPCS: 70450; 72125; 73502; 73564; 99281; 99284

== ENCOUNTER 2017-11-19 08:54 | Inpatient (IN) | payer OTHER ==
[~2017-11-19] VITALS: Ht 177.8 cm; Wt 158.9 kg
[2017-11-19 10:02] LABS: BASOPHIL (%) 0.3 % (0-1); EOSINOPHIL (%) 1.4 % (0-5); EOSINOPHIL COUNT 0.2 K/uL (0-0.3); HEMATOCRIT 36.5 % (38.0-50.0); HEMOGLOBIN 12.1 G/DL (12.5-16.6); IMMATURE GRANULOCYTE (%) 0.3 % (0.0-0.7); LYMPHOCYTE (%) 16.2 % (15-42); LYMPHOCYTE COUNT 1.9 K/uL (1.0-2.8); MCH 26.8 PG (29.0-34.0); MCHC 33.2 G/DL (30.0-36.0); MCV 80.9 FL (86-99); MONOCYTE (%) 6.4 % (3-12); MONOCYTE COUNT 0.8 K/uL (0-0.8); NEUTROPHIL (%) 75.4 % (45-76); NEUTROPHIL COUNT 8.9 K/uL (1.8-6.4); PLATELET COUNT 195 K/uL (156-360); RBC DIS.WIDTH-CV 16.2 % (11.8-14.6); RBC DIS.WIDTH-SD 47.6 % (39-53); RED BLOOD COUNT 4.51 M/uL (4.00-5.50); WHITE BLOOD COUNT 11.9 K/uL (4.1-10.2)
[2017-11-19 11:06] LABS: ACETAMINOPHEN (TYLENOL) < 10 MCG/ML (10-30); CHLORIDE 105 MEQ/L (99-109); CREATININE 0.8 MG/DL (0.6-1.3); GFR ESTIMATE (CALCULATED) > 59 mL/min/ (58.99-99999); GLUCOSE 100 mg/dL (70-99); POTASSIUM 3.8 MEQ/L (3.7-5.4); SALICYLATE < 3.0 MG/DL (15-30); SODIUM 139 MEQ/L (136-147); UREA NITROGEN (BUN) 14 mg/dL (9-23)
[2017-11-19 11:08] LABS: SERUM ETHYL ALCOHOL < 10 mg/dL
[2017-11-19 11:15] LABS: AMPHETAMINE NEGATIVE (500 ng/mL); BARBITURATES NEGATIVE (200 ng/mL); BENZODIAZEPINES PRESUMPTIVE POSITIVE (150 ng/mL); BUPRENORPHINE NEGATIVE (10 ng/mL); COCAINE NEGATIVE (150 ng/mL); METHADONE NEGATIVE (200 ng/mL); METHAMPHETAMINE NEGATIVE (500 ng/mL); OPIATES (MORPHINE) NEGATIVE (100 ng/mL); OXYCODONE NEGATIVE (100 ng/mL); PHENCYCLIDINE NEGATIVE (25 ng/mL); PROPOXYPHENE NEGATIVE (300 ng/mL); THC CANNABINOIDS NEGATIVE (50 ng/mL); TRICYCLIC ANTIDEPRESSANTS NEGATIVE (300 ng/mL)
[2017-11-19 12:19] LABS: BENZODIAZEPINES, URINE SCREEN Negative (200 ng/mL)
[2017-11-19] MEDS ORDERED: ZESTRIL20 MG PO (13:13)
[2017-11-19] MEDS ORDERED: ATIVAN1 MG PO (13:16)
[2017-11-19] MEDS ORDERED: LO-DOSE ASPIRIN81 M1 PO (13:16)
[2017-11-19] MEDS ORDERED: ADVAIR HFA120 INHAL1 IH (13:16)
[2017-11-19 16:24] VITALS: BP 172/109
[2017-11-19 16:28] VITALS: BP 172/109
[2017-11-19 19:50] VITALS: BP 162/94
[2017-11-20 07:55] VITALS: BP 142/93
[2017-11-20 15:32] VITALS: BP 144/85
[2017-11-20 21:29] VITALS: BP 158/87
[2017-11-21 07:56] VITALS: BP 165/88
[2017-11-21 13:30] VITALS: BP 154/76
[2017-11-21 16:09] VITALS: BP 162/94
[2017-11-22 08:23] VITALS: BP 161/75
[2017-11-22 16:11] VITALS: BP 152/109
[2017-11-22 20:01] VITALS: BP 185/108
[2017-11-23 02:48] VITALS: BP 199/100
[2017-11-23 05:44] VITALS: BP 146/77
[2017-11-23 08:00] VITALS: BP 142/94
[2017-11-23 15:54] VITALS: BP 146/83
[2017-11-24 07:51] VITALS: BP 133/81
[2017-11-24 15:41] VITALS: BP 154/92
[2017-11-24 22:36] VITALS: BP 150/86
[2017-11-25 08:01] VITALS: BP 123/57
[2017-11-25 16:01] VITALS: BP 129/58
[2017-11-26 08:11] VITALS: BP 127/86
[2017-11-26] MEDS ORDERED: HYDROCHLOROTHIA25 MG PO (11:01)
[2017-11-26] MEDS ORDERED: ZOLPIDEM TARTRAT5 MG PO (11:01)
[2017-11-26] MEDS ORDERED: LISINOPRIL20 MG PO (11:01)
[2017-11-26] MEDS ORDERED: MIRTAZAPINE45 MG PO (11:01)
[2017-11-26] MEDS ORDERED: ARIPIPRAZOLE5 MG PO (11:01)
[2017-11-26] MEDS ORDERED: CARVEDILOL25 MG PO (11:01)
[2017-11-26] MEDS ORDERED: LYRICA50 MG PO (11:01)
== END 2017-11-26 13:14 | disposition home or self-care (01) | DRG 885 ==
LOC: EME 08:54 → EDOF 14:51 → 1WEST 14:51 → ENRESERV 15:58 → 1WEST 11-26 13:14
PROVIDERS: Emergency Medicine
DX: F33.2 Major depressive disorder, recurrent severe without psychotic features (principal); R45.851 Suicidal ideations; I11.0 Hypertensive heart disease with heart failure; I50.9 Heart failure, unspecified; J44.9 Chronic obstructive pulmonary disease, unspecified; G47.33 Obstructive sleep apnea (adult) (pediatric); E78.5 Hyperlipidemia, unspecified; G89.29 Other chronic pain; M25.562 Pain in left knee; Z96.652 Presence of left artificial knee joint; E66.01 Morbid (severe) obesity due to excess calories; Z68.43 Body mass index [BMI] 50.0-59.9, adult; Z87.891 Personal history of nicotine dependence; Z87.442 Personal history of urinary calculi; Z79.82 Long term (current) use of aspirin
CPT/HCPCS: 80048; 84999; 85025; 90839; 93005; 97150 GO; 97165 GO; 99202; 99281; 99284; G0480

== ENCOUNTER 2017-12-21 15:34 | Emergency (ER) | payer OTHER ==
[~2017-12-21] VITALS: Ht 180.3 cm; Wt 171.0 kg
[~2017-12-21 15:34] MED LIST changes: +ARIPIPRAZOLE5 MG PO; +CARVEDILOL25 MG PO; +LISINOPRIL20 MG PO; +LO-DOSE ASPIRIN81 M1 PO; +LYRICA50 MG PO; +MIRTAZAPINE45 MG PO; +ZESTRIL20 MG PO; +ZOLPIDEM TARTRAT5 MG PO
[2017-12-21 16:22] LABS: HEMATOCRIT 34.4 % (38.0-50.0); HEMOGLOBIN 11.2 G/DL (12.5-16.6); MCH 27.2 PG (29.0-34.0); MCHC 32.6 G/DL (30.0-36.0); MCV 83.5 FL (86-99); PLATELET COUNT 211 K/uL (156-360); RBC DIS.WIDTH-CV 16.2 % (11.8-14.6); RBC DIS.WIDTH-SD 49.2 % (39-53); RED BLOOD COUNT 4.12 M/uL (4.00-5.50); WHITE BLOOD COUNT 11.5 K/uL (4.1-10.2)
[2017-12-21 16:31] LABS: CHLORIDE 107 mEq/L (99-109); POTASSIUM 4.5 mEq/L (3.7-5.4); SODIUM 143 mEq/L (136-147)
[2017-12-21 16:32] LABS: GLUCOSE 100 mg/dL (70-99)
[2017-12-21 16:35] LABS: SERUM ETHYL ALCOHOL < 10 mg/dL
[2017-12-21 16:36] LABS: GFR ESTIMATE (CALCULATED) > 59 mL/min/ (58.99-99999)
[2017-12-21 16:38] LABS: UREA NITROGEN (BUN) 20 mg/dL (9-23)
[2017-12-21 16:39] LABS: SALICYLATE < 5.0 MG/DL (15-30)
[2017-12-21 16:40] LABS: ACETAMINOPHEN (TYLENOL) < 10 mcg/mL (10-30)
[2017-12-21 16:57] LABS: AMPHETAMINE NEGATIVE (500 ng/mL); BARBITURATES NEGATIVE (200 ng/mL); BENZODIAZEPINES NEGATIVE (150 ng/mL); BUPRENORPHINE NEGATIVE (10 ng/mL); COCAINE NEGATIVE (150 ng/mL); METHADONE NEGATIVE (200 ng/mL); METHAMPHETAMINE NEGATIVE (500 ng/mL); OPIATES (MORPHINE) NEGATIVE (100 ng/mL); OXYCODONE PRESUMPTIVE POSITIVE (100 ng/mL); PHENCYCLIDINE NEGATIVE (25 ng/mL); PROPOXYPHENE NEGATIVE (300 ng/mL); THC CANNABINOIDS NEGATIVE (50 ng/mL); TRICYCLIC ANTIDEPRESSANTS NEGATIVE (300 ng/mL)
[2017-12-21 17:39] VITALS: BP 175/99
== END 2017-12-21 17:40 | disposition home or self-care (01) ==
LOC: EME 15:34
PROVIDERS: Emergency Medicine
DX: F34.1 Dysthymic disorder (principal); J44.9 Chronic obstructive pulmonary disease, unspecified; F41.9 Anxiety disorder, unspecified; F32.9 Major depressive disorder, single episode, unspecified; Z79.51 Long term (current) use of inhaled steroids; Z79.82 Long term (current) use of aspirin; Z87.891 Personal history of nicotine dependence; Z87.19 Personal history of other diseases of the digestive system; Z86.79 Personal history of other diseases of the circulatory system; Z87.442 Personal history of urinary calculi; Z96.652 Presence of left artificial knee joint; Z98.890 Other specified postprocedural states; Z87.820 Personal history of traumatic brain injury; Z90.49 Acquired absence of other specified parts of digestive tract; Z91.041 Radiographic dye allergy status
CPT/HCPCS: 80048; 85027; 90839; 99281; 99283; G0480

== ENCOUNTER 2018-01-28 17:47 | Emergency (ER) | payer OTHER ==
[~2018-01-28] VITALS: Ht 180.3 cm; Wt 174.0 kg
[2018-01-28 18:39] LABS: HEMATOCRIT 37.1 % (38.0-50.0); HEMOGLOBIN 12.1 G/DL (12.5-16.6); MCH 27.8 PG (29.0-34.0); MCHC 32.6 G/DL (30.0-36.0); MCV 85.1 FL (86-99); PLATELET COUNT 267 K/uL (156-360); RBC DIS.WIDTH-CV 15.4 % (11.8-14.6); RBC DIS.WIDTH-SD 47.7 % (39-53); RED BLOOD COUNT 4.36 M/uL (4.00-5.50); WHITE BLOOD COUNT 13.2 K/uL (4.1-10.2)
[2018-01-28 19:09] LABS: CHLORIDE 106 MEQ/L (99-109); CREATININE 0.9 MG/DL (0.6-1.3); GFR ESTIMATE (CALCULATED) > 59 mL/min/ (58.99-99999); GLUCOSE 81 mg/dL (70-99); POTASSIUM 3.7 MEQ/L (3.7-5.4); SODIUM 142 MEQ/L (136-147); UREA NITROGEN (BUN) 16 mg/dL (9-23)
[2018-01-28 19:14] LABS: TROP-I INTERPRETATION NEGATIVE; TROPONIN-I < 0.01 ng/mL (0.0-0.30)
[2018-01-28 22:18] LABS: TROP-I INTERPRETATION NEGATIVE; TROPONIN-I < 0.01 ng/mL (0.0-0.30)
[2018-01-28 22:58] VITALS: BP 136/88
== END 2018-01-28 22:58 | disposition home or self-care (01) ==
LOC: EME 17:47 → RME 17:47
PROVIDERS: Physician Assistant
DX: R07.9 Chest pain, unspecified (principal); R06.02 Shortness of breath; R94.31 Abnormal electrocardiogram [ECG] [EKG]; I11.0 Hypertensive heart disease with heart failure; I50.9 Heart failure, unspecified; J44.9 Chronic obstructive pulmonary disease, unspecified; E78.5 Hyperlipidemia, unspecified; Z79.82 Long term (current) use of aspirin; Z87.891 Personal history of nicotine dependence
CPT/HCPCS: 71046; 80048; 83880; 84484; 85027; 93005; 99281; 99284

== ENCOUNTER 2018-03-05 11:05 | Emergency (ER) | payer OTHER ==
[~2018-03-05] VITALS: Ht 180.3 cm; Wt 185.0 kg
[2018-03-05 15:09] VITALS: BP 161/93
== END 2018-03-05 15:13 | disposition home or self-care (01) ==
LOC: EME 11:05
DX: S83.92XA Sprain of unspecified site of left knee, initial encounter (principal); W01.0XXA Fall on same level from slipping, tripping and stumbling without subsequent striking against object, initial encounter; Y93.K1 Activity, walking an animal; Z96.652 Presence of left artificial knee joint; I11.0 Hypertensive heart disease with heart failure; I50.9 Heart failure, unspecified; F32.9 Major depressive disorder, single episode, unspecified; F41.9 Anxiety disorder, unspecified; J43.9 Emphysema, unspecified; J45.909 Unspecified asthma, uncomplicated; Z86.69 Personal history of other diseases of the nervous system and sense organs; Z79.82 Long term (current) use of aspirin; Z87.891 Personal history of nicotine dependence; Z91.041 Radiographic dye allergy status; Z87.442 Personal history of urinary calculi
CPT/HCPCS: 73564; 99281; 99285; J2270